=== PATIENT | male | born 1975 | race Caucasian/White ===

== ENCOUNTER 2017-09-09 10:07 | Emergency (ER) | payer OTHER ==
[~2017-09-09] VITALS: Ht 193 cm; Wt 224.6 kg
[~2017-09-09 10:07] MED LIST: ADULT LOW DOSE81 M1 PO; HYDROCODON-ACE1 EAC7 PO; IBUPROFEN800 MG PO; LEVO-T50 MCG PO; NORVASC10 MG PO; VALSARTAN80 MG PO; VITAMIN D31000 UNIT PO; ZYRTEC10 M2 PO
[2017-09-09 11:09] VITALS: BP 144/81
== END 2017-09-09 11:12 | disposition home or self-care (01) ==
LOC: EME 10:07
DX: R53.83 Other fatigue (principal); R42 Dizziness and giddiness; I10 Essential (primary) hypertension
CPT/HCPCS: 99281; 99284